=== PATIENT | female | born 1995 | race African-American/Black ===

== ENCOUNTER 2019-04-20 19:45 | Inpatient (IN) | payer BC, OTHER ==
[~2019-04-20 19:45] MED LIST: Bupivacaine 0.25% 10 ML VIAL ONE
[2019-04-20] MEDS ORDERED: NS w/ Oxytocin 10 units 500 ML IV SCH ×2 (19:53)
[2019-04-20] MEDS ORDERED: Carboprost 250 MCG/ML AMP IM PRN (19:53)
[2019-04-20] MEDS ORDERED: Penicillin G 2.5 MILL.units 2.5 MILL.UNITS in Premix Bag 1 BAG IVPB SCH (19:53)
[2019-04-20] MEDS ORDERED: Promethazine HCl 25 MG/ML VIAL IM PRN (19:53)
[2019-04-20] MEDS ORDERED: Methylergonovine 0.2 MG/ML VIAL IM PRN (19:53)
[2019-04-20] MEDS ORDERED: NS / Oxytocin 40 units/1000ml 1,000 ML IV PRN (19:53)
[2019-04-20] MEDS ORDERED: Ondansetron PF 4 MG/2 ML Vial IVP PRN (19:53)
[2019-04-20] MEDS ORDERED: Butorphanol Tartrate 1 MG/ML VIAL SLOW IVP PRN (19:53)
[2019-04-20] MEDS ORDERED: HYDROcodone/Acetaminophen 5/325 mg Tablet PO PRN (19:53)
[2019-04-20] MEDS ORDERED: Lidocaine 1% (PF) 30 ML VIAL SC PRN (19:53)
[2019-04-20] MEDS ORDERED: Ibuprofen 800 MG TAB PO PRN (19:53)
[2019-04-20] MEDS ORDERED: Misoprostol 200 MCG TAB PR PRN (19:53)
[2019-04-20] MEDS ORDERED: Diphenoxylate HCl/Atropine Tablet PO PRN (19:53)
[2019-04-20] MEDS ORDERED: hydrALAZINE 20 MG/ML VIAL SLOW IVP PRN (19:53)
[2019-04-20] MEDS ORDERED: Penicillin G Potassium 5 MILL.UNITS in Sodium Chloride 0.9% 100 ML IVPB SCH (20:00)
[2019-04-20] MEDS: Lactated Ringer's 1,000 ML IV SCH (20:35)
[2019-04-20 20:45] VITALS: BMI 31.1
[2019-04-20 20:49] LABS: Hemoglobin 12.9 g/dL (12.0-16.0); Mean Corpuscular HGB CONC 34.4 g/dL (32.0-36.0); Mean Corpuscular Volume 92.9 fL (78.0-98.0); Mean Platelet Volume 8.4 fL (7.4-10.4); Platelet Count 220 thou/uL (130-400); RBC Distribution Width 12.8 % (11.5-14.5); Red Blood Cell (RBC) Count 4.04 mill/uL (4.20-5.40); White Blood Cell (WBC) Count 10.7 thou/uL (4.8-10.8)
[2019-04-20] MEDS: Misoprostol 100 MCG TAB PO SCH (21:11)
[2019-04-20 21:26] LABS: Syphilis Antibody Nonreactive (Nonreactive); Syphilis Antibody Index 0.04 S/CO (<1.00 Non-Reactive)
[2019-04-20 22:47] LABS: HBSAg Index 0.17 S/CO (0-0.99); Hep B Surf Ag Non-Reactive S/CO (NonReactive)
[2019-04-21] MEDS: Misoprostol 100 MCG TAB PO SCH ×4 (01:58→22:02)
[2019-04-21] MEDS: Lactated Ringer's 1,000 ML IV SCH ×2 (03:28→10:09)
[2019-04-21] MEDS ORDERED: Misoprostol 100 MCG TAB ONE (21:51)
[2019-04-22] MEDS: Misoprostol 100 MCG TAB PO SCH ×2 (02:11→06:21)
[2019-04-22] MEDS: Lactated Ringer's 1,000 ML IV SCH ×3 (06:21→18:42)
[2019-04-22] MEDS ORDERED: Fentanyl 4 mcg/Bup 0.1% Cadd 100 ML ONE (08:40)
[2019-04-22] MEDS ORDERED: Lactated Ringer's 500 ML IV PRN (09:26)
[2019-04-22] MEDS ORDERED: Acetaminophen 325 MG TAB PO PRN (09:26)
[2019-04-22] MEDS ORDERED: Naloxone HCl 0.4 mg/ml Vial IVP PRN ×4 (09:26→23:41)
[2019-04-22] MEDS ORDERED: Ondansetron PF 4 MG/2 ML Vial IVP PRN ×2 (09:26→23:41)
[2019-04-22] MEDS ORDERED: Promethazine HCl 25 MG/ML VIAL IM PRN ×2 (09:26→23:41)
[2019-04-22] MEDS ORDERED: ePHEDrine/0.9% NaCl/PF SYRINGE 50 mg/10 ml SLOW IVP PRN (09:26)
[2019-04-22] MEDS ORDERED: Communication Order-Pharmacy FS SCH ×2 (09:30→23:45)
[2019-04-22] MEDS ORDERED: Fentanyl 4 mcg/Bupivacaine 0.1% Cassette 100 ML EPIDURAL SCH (09:30)
[2019-04-22] MEDS: diphenhydrAMINE 50 MG/ML VIAL IVP PRN ×2 (15:58→18:48)
[2019-04-22] MEDS ORDERED: Bicitra 30 ML UDCUP ONE (22:09)
[2019-04-22] MEDS ORDERED: Lidocaine 2% 10 ML INJ ONE (22:36)
[2019-04-22] MEDS ORDERED: Oxytocin 10 UNITS/ML VIAL ONE (22:37)
[2019-04-22] MEDS ORDERED: Azithromycin 500 MG VIAL ONE (22:59)
[2019-04-22] MEDS ORDERED: Methylergonovine 0.2 MG/ML VIAL ONE (23:02)
[2019-04-22] MEDS ORDERED: Carboprost 250 MCG/ML AMP ONE (23:03)
[2019-04-22] MEDS ORDERED: Fentanyl 100 MCG/2 ML VIAL ONE ×2 (23:08→23:44)
[2019-04-22] MEDS ORDERED: MORPHINE 5 MG/10 ML PF VIAL ONE (23:10)
[2019-04-22] MEDS ORDERED: PHENYLEPHRINE-NS 100 MCG/ML 10 ML SYRINGE ONE (23:23)
[2019-04-22] MEDS ORDERED: diphenhydrAMINE 50 MG/ML VIAL IVP PRN (23:41)
[2019-04-22] MEDS ORDERED: Promethazine HCl 25 MG SUPP PR PRN (23:41)
[2019-04-22] MEDS ORDERED: HYDROmorphone 2 MG/ML VIAL SLOW IVP PRN (23:41)
[2019-04-22] MEDS ORDERED: Ketorolac Tromethamine 30 MG/ML VIAL IVP PRN (23:41)
[2019-04-22] MEDS ORDERED: Ondansetron HCl/PF 4 MG/2 ML Vial IVP PRN (23:41)
[2019-04-22] MEDS ORDERED: Naloxone HCl 0.4 mg/ml Vial IV PRN (23:41)
[2019-04-22] MEDS ORDERED: L&D-Morphine 4 MG/ML VIAL SLOW IVP PRN (23:41)
[2019-04-22] MEDS ORDERED: Ketorolac Tromethamine 30 MG/ML VIAL IVP SCH (23:45)
[2019-04-22] MEDS ORDERED: Ketorolac Tromethamine 30 MG/ML VIAL ONE (23:58)
--- NOTE | 2019-04-22 23:58 | PDOC.OPDEL ---
OB Operative/Delivery Note Delivery Dr/Surgeon: Dr. Singh Assist: Dr. Navarro Pre-Delivery Diagnosis: medically indicated induction (post-dates) Procedure/Post Delivery Dx: primary low transverse CS (arrest of dilation) Weeks gestation: 41 Anesthesia: epidural - Findings A Sex: female - Additional Findings/Plan Placenta delivered: spontaneous findings: low transverse hysterotomy without extension Estimated blood loss: 800mL Compilations/Other Findings: Preoperative Diagnosis: 1)Term intrauterine 2)Arrest of Dilation Postoperative Diagnosis: 1)Term intrauterine , delivered 2)Arrest of Dilation Anesthesia: epidural Indications: The patient is a 23 year old female at 41.0 weeks gestation who presented as a post-dates induction of labor 2 days ago and had an arrest of dilation so the decision was made to proceed with a section. Procedure in Detail: After risks, benefits, and alternatives were explained to the patient, she gave informed consent. Pre-operative antibiotics included Cefazolin 2 gram IV, Azithromycin 500mg IV. The patient was taken to the operating room. She was placed in the supine position with a left tilt and prepped and draped in usual sterile fashion. A Pfannenstiel incision was made with a scalpel and carried down to the level of the fascia which was sharply nicked. The fascial cut was extended bilaterally with Yarbrough scissors. The inferior and superior edges of the cut fascial edges were elevated with Aamir clamps and the underlying rectus muscles were sharply and bluntly dissected free. The recti were divided digitally and retracted manually. The peritoneum was entered bluntly and retracted manually. Bladder blade was placed. A low transverse score was made with the scalpel and the uterus was entered in the midline bluntly. Clear fluid was seen. The hysterotomy was extended manually. The infant was noted to be vertex and was easily delivered by fundal pressure. Mouth and nares were bulb suctioned. Cord clamped and cut and grossly normal female was handed to waiting nurse. Cord blood was obtained. Placenta was manually extracted, found to be intact with 3 vessel cord and discarded. The uterus was externalized and the endometrium was curetted with a dry lap. The bladder blade was replaced and the uterus was closed with a running locking #1 Monocryl suture. Following this hemostasis was noted. The abdomen was irrigated with saline and suctioned free of clots. Seprafilm was placed over the anterior aspect of the uterus. The uterus was internalized and the hysterotomy was again noted to be hemostatic. The peritoneum was closed with 3-0 monocryl running, non-locking suture. The fascia was closed with a running non-locking 0-PDS suture. The subcutaneous tissue was irrigated and there were no bleeders. The subcutaneous layer was closed with interrupted 3-0 vicryl suture. The skin was approximated with alexandro and a pressure dressing was placed. All counts were correct. The patient tolerated the procedure well and was taken to the recovery room in stable condition. Estimated Blood Loss: 800 ml Complications: None Specimens: Cord blood sent to lab for blood type Findings: Grossly normal female went to nursery. Grossly normal placenta with 3 vessel cord discarded. Drains: Sewell to gravity draining blood tinged urine, that was similar color to pre-op Post delivery plan: routine recovery
[2019-04-23] MEDS ORDERED: Meperidine HCl/PF 25 MG/ML VIAL ONE ×3 (00:12→00:43)
[2019-04-23] MEDS: Meperidine HCl/PF 25 MG/ML VIAL SLOW IVP PRN ×3 (00:14→00:58)
[2019-04-23] MEDS ORDERED: Ondansetron PF 4 MG/2 ML Vial ONE (00:16)
[2019-04-23 01:09] LABS: #Eosinphils 0.1 thou/uL (0.0-0.7); #Lymphocytes 0.7 thou/uL (1.20-3.40); #Monocytes 1.7 thou/uL (0.11-0.59); #Neutrophils 14.9 thou/uL (1.40-6.50); %Eosinophils 0.4 % (0.0-10.0); %Lymphocytes 4.2 % (21.0-51.0); %Monocytes 9.5 % (0.0-10.0); %Neutrophils 85.8 % (42.0-75.0); Mean Corpuscular HGB CONC 33.6 g/dL (32.0-36.0); Mean Corpuscular Hemoglobin 31.6 pg (27.0-31.0); Mean Corpuscular Volume 93.9 fL (78.0-98.0); Mean Platelet Volume 8.2 fL (7.4-10.4); Platelet Count 198 thou/uL (130-400); RBC Distribution Width 12.8 % (11.5-14.5); Red Blood Cell (RBC) Count 3.81 mill/uL (4.20-5.40); White Blood Cell (WBC) Count 17.3 thou/uL (4.8-10.8)
--- NOTE | 2019-04-23 01:25 | PDOC.EVN ---
Event Note - Event Note Event Note: Called to bedside in recover for deviated uterus. pt given 50mg demerol. bimanual peformed and evacuated 200cc clot. uterus now more firm and more midline. exam tolerated with difficulty. you tubing had been looped up above level of bladder. When corrected another 200cc clear urine immediately drained. bp 110's/70s with pulse in 70s prior to exam. sat 98% Pt alert and awake. sitting up. fibrinogen about 450 hgb 12.0 platelets 198 from 220 prior to csection. csection was about 2hrs prior to my exam. total blood loss 1370cc
[2019-04-23] MEDS ORDERED: Lanolin Ointment 7 GM TUBE TOP PRN (03:12)
[2019-04-23] MEDS ORDERED: diphenhydrAMINE 25 MG CAP PO PRN (03:12)
[2019-04-23] MEDS ORDERED: Ondansetron PF 4 MG/2 ML Vial IVP PRN (03:12)
[2019-04-23] MEDS ORDERED: hydrALAZINE 20 MG/ML VIAL SLOW IVP PRN (03:12)
[2019-04-23] MEDS ORDERED: Bisacodyl 10 MG SUPP PR PRN (03:12)
[2019-04-23] MEDS: Lactated Ringer's 1,000 ML IV SCH (04:38)
[2019-04-23] MEDS: Ketorolac Tromethamine 30 MG/ML VIAL IVP SCH ×3 (06:02→17:56)
[2019-04-23 07:38] LABS: Hemoglobin 9.8 g/dL (12.0-16.0); Mean Corpuscular HGB CONC 34.2 g/dL (32.0-36.0); Mean Corpuscular Hemoglobin 32.7 pg (27.0-31.0); Mean Corpuscular Volume 95.6 fL (78.0-98.0); Mean Platelet Volume 8.8 fL (7.4-10.4); Platelet Count 191 thou/uL (130-400); Red Blood Cell (RBC) Count 2.99 mill/uL (4.20-5.40); White Blood Cell (WBC) Count 16.2 thou/uL (4.8-10.8)
[2019-04-23] MEDS ORDERED: Adacel (T-DAP) 0.5 ML SYRINGE IM ONE (09:00)
[2019-04-23] MEDS: Prenatal Vitamin 1 TAB PO SCH (09:31)
[2019-04-23] MEDS: Ferrous Sulfate 325 MG TAB PO SCH ×2 (09:31→20:01)
[2019-04-23] MEDS: Docusate Calcium (SURFAK) 240 MG CAP PO SCH ×2 (09:31→20:01)
[2019-04-23] MEDS ORDERED: Morphine 2 MG/ML SYRINGE SLOW IVP PRN (10:07)
[2019-04-23] MEDS ORDERED: Meperidine HCl/PF 25 MG/ML VIAL IM PRN (11:45)
[2019-04-23] MEDS ORDERED: HYDROcodone/Acetaminophen 5/325 mg Tablet PO PRN (11:45)
[2019-04-23] MEDS: HYDROcodone/Acetaminophen 5/325 mg Tablet PO PRN ×2 (15:52→21:36)
[2019-04-23] MEDS: Simethicone Chewable 80 MG TAB PO PRN ×2 (15:52→22:04)
[2019-04-23] MEDS ORDERED: Ibuprofen 800 MG TAB PO SCH (20:00)
[2019-04-24] MEDS: Simethicone Chewable 80 MG TAB PO PRN ×2 (05:06→15:43)
[2019-04-24] MEDS: Ibuprofen 800 MG TAB PO SCH ×3 (05:07→21:29)
[2019-04-24] MEDS: HYDROcodone/Acetaminophen 5/325 mg Tablet PO PRN ×4 (07:33→20:31)
[2019-04-24] MEDS: Misoprostol 100 MCG TAB PO SCH (08:04)
[2019-04-24] MEDS: Ferrous Sulfate 325 MG TAB PO SCH ×2 (09:18→20:31)
[2019-04-24] MEDS: Prenatal Vitamin 1 TAB PO SCH (09:18)
[2019-04-24] MEDS: Docusate Calcium (SURFAK) 240 MG CAP PO SCH ×2 (09:18→20:31)
[2019-04-25] MEDS: HYDROcodone/Acetaminophen 5/325 mg Tablet PO PRN ×4 (01:04→14:54)
[2019-04-25] MEDS: Ibuprofen 800 MG TAB PO SCH ×2 (06:00→13:59)
[2019-04-25 08:44] VITALS: BP 105/58; TEMP 98.8
[2019-04-25] MEDS: Prenatal Vitamin 1 TAB PO SCH (09:59)
[2019-04-25] MEDS: Docusate Calcium (SURFAK) 240 MG CAP PO SCH (09:59)
[2019-04-25] MEDS: Ferrous Sulfate 325 MG TAB PO SCH (09:59)
== END 2019-04-25 18:35 | disposition home or self-care (01) | DRG 788 ==
LOC: L&D 19:47 → 3SW 04-23 03:00
PROVIDERS: ADMIT Family Medicine; ATTEND Family Medicine
PROC: 10D00Z1 Extraction of Products of Conception, Low, Open Approach (ICD-10-PCS; principal; 2019-04-22)
DX: O34.211 Maternal care for low transverse scar from previous cesarean delivery (principal); O62.8 Other abnormalities of forces of labor; O48.0 Post-term pregnancy; Z3A.41 41 weeks gestation of pregnancy; Z37.0 Single live birth
CPT/HCPCS: 36415; 51702; 85025; 85027; 85384; 86780; 86850; 86900; 86901; 87340; 90715; J0456; J0690; J1200; J1885; J2001; J2175; J2210; J2270; J2274; J2405; J2590; J3010; J3490; S0020